=== PATIENT | female | born 1995 | race Caucasian/White ===

== ENCOUNTER 2024-05-06 16:17 | Emergency (ER) | payer OTHER, SELFPAY ==
--- NOTE | 2024-05-06 16:20 | ED_ITS ---
HPI - URI/Sore Throat General Chief Complaint: Upper Respiratory Infection Stated Complaint: cold symptoms Time Seen by Provider: 05/06/24 16:36 Source: patient and RN notes reviewed Mode of arrival: ambulatory Limitations: no limitations History of Present Illness HPI Narrative: 29-year-old female presents with concern for 5 day history of sore throat, runny, stuffy nose, headache postnasal drainage. She reports productive cough. She denies fever, body aches, chills, sweats. MD elicited complaint: cough and sore throat Related Data Allergies Allergy/AdvReac Type Severity Reaction Status Date / Time No Known Allergies Allergy Verified 05/06/24 16:27 Review of Systems Review of Systems: CONSTITUTIONAL: Denies malaise, chills, sweats, or fever. EYES: Denies visual changes, redness, or discharge. ENT: Reports rhinorrhea, congestion, and sore throat. CARDIOVASCULAR: Denies chest pain, palpitations, or edema. RESPIRATORY: Reports cough. Denies dyspnea. GASTROINTESTINAL: Denies abdominal pain, nausea, vomiting, diarrhea SKIN: Denies rash or itching. MUSCULOSKELETAL: Denies myalgia. NEUROLOGIC: Denies headache. All systems reviewed & are unremarkable except as noted in HPI and below PMFSH Comments At time of signature, agree with nursing past medical, surgical, social and family history. There is no relevant family history pertinent to the presenting complaint Exam Narrative: GENERAL: Well-appearing, well-nourished, and in no acute distress. HEAD: Normocephalic EYES: PERRLA, conjunctivae clear ENT: Nares clear, turbinates edematous and erythematous, clear discharge. Mucous membranes moist. TM pearly candelario with dull light reflex bilaterally; no tragal tenderness. Oropharynx not erythematous without lesions. Tonsils not enlarged and without exudate, no drooling, no hoarseness, no trismus, uvula midline. NECK: Supple. No lymphadenopathy CHEST: Clear to auscultation, breath sounds equal. No wheezing, rhonchi, rales, or stridor. No respiratory distress, speaks in full sentences. HEART: Regular rate and rhythm. No murmur heard. SKIN: Warm, dry, no rash. NEURO: Alert and oriented x3. PSYCH: Normal mood and affect Course Course Emergency Course: Patient is aware of diagnosis, understands and agrees to treatment plan. Anticipatory guidance given. Patient agrees to follow-up as directed and is aware of reasons to seek care at the emergency department. Portions of this record may have been created with voice recognition software Level of Care: Express Care Visit Vital Signs Vital signs: Reviewed. MDM - URI/Sore Throat MDM Narrative Medical decision making narrative: Differential diagnosis considered: Armendariz virus, strep pharyngitis, allergic rhinitis, upper respiratory tract infection, sinusitis, rhinosinusitis, nasop haryngitis. viral pharyngitis, otitis media, otitis externa, pneumonia, bronchitis, viral cough syndrome, viral syndrome, and influenza. Exam findings show no acute concerns or changes; patient is non-toxic appearing and is in no distress. Patient is appropriate for outpatient treatment and follow-up. Lab Data Attestation: I reviewed the patient's lab results. Critical Care Time Critical Care Time Critical Care Time: No Discharge Plan Discharge Clinical Impression: Bronchitis Patient Disposition: Home, Self-Care Condition: Stable Instructions: Acute Bronchitis (ED) Additional Instructions: Viral illness may last between 7-21 days; antibiotics do not cure viral illness and are NOT recommended at this time. Recommend antihistamine such as Benadryl at night time and Zyrtec or Jennifer during the day Cough syrup may cause drowsiness; avoid driving or take it at night time. Also, recommend symptomatic treatment includes: rest, fluids, and increase humidity of the air at home. Recommend Acetaminophen as directed on the bottle to reduce fever, pain, headache. Avoid smoking/second-hand smoke. Please schedule a follow-up visit with your personal physician for further evaluation and treatment within 3-5days. Including recheck and discussion of your blood pressure. If your symptoms persist, change or worsen significantly before you can contact your personal physician then please, without delay, go to the emergency department for further evaluation. Prescriptions: New pseudoephedrine HCl [12 Hour Decongestant] 120 mg tablet extended release 120 mg PO Q12H PRN (Reason: nasal congestion) Qty: 20 0RF promethazine-DM 6.25-15 mg/5 mL syrup 5 ml PO Q4-6H PRN (Reason: cough) Qty: 120 0RF Follow-up/Referrals: UNKNOWN,DOCTOR [Non-Staff] - Time of Disposition: 16:40
[2024-05-06 16:24] VITALS: BP 145/98; PULSE 99; RESP 18; TEMP 36.5; O2SAT 99
== END 2024-05-06 16:46 | disposition home or self-care (01) ==
PROVIDERS: Emergency Provider Nurse Practitioner
DX: J40 Bronchitis, not specified as acute or chronic (principal)
CPT/HCPCS: 99203; G0463

== ENCOUNTER 2025-04-14 15:57 | Emergency (ER) | payer OTHER, SELFPAY ==
--- OUTSIDE RECORDS SUMMARY | 2013-06-07 08:30 | XMS_ITS | Continuity of Care Document ---
Author Organization [facility] Address [address] [place] [address] Phone Care Team Providers Care Fruit Harvest Machine Operator Name Role Phone Chauncye Garcia MD Unavailable Unavailable Allergies, Adverse Reactions, Alerts Substance Reaction Status Criticality No Known allergies Procedures Procedure Date Eye Exam, New Patient No Charge Refraction Advance Directives Directive Yes / No Effective Date File Name Resuscitation Not Answered N/A N/A Life Support Not Answered N/A N/A Intubation Not Answered N/A N/A Antibiotics Not Answered N/A N/A IV Fluid Support Not Answered N/A N/A Tube Feed Not Answered N/A N/A Other Directive N/A N/A WARNING:The information contained in this section is historical and is provided for information only and does not constitute a legal document or any assurance that the information is still accurate. Please verify the information with the green of the legal document before using it for clinical purposes. Encounters Encounter Description Practice Location Reason(s) For Visit Diagnoses Date Provider Providers Copied on Encounter [facility], [address], [place], [place], [address], [place] tel:[phone] [facility] Professional [facility] [place] 4 Jose Grossman. [address] [facility], [address], [place], [place], [address], [place]. tel:[phone] Referring Provider: Nicolás Bray OD, [facility] [address] [place], [address]. tel:[phone] Family History Family Member Type Diagnosis Age At Onset Grandfather (p) Problem (finding) Diabetes mellitus Payers Payer name Insurance type Covered green party ID Radha andre(s) [facility] Commercial CI [id number] Social History Type Description Quantity Date Captured Comments Alcohol Use Details No Caffeine Use Details 1 cup per day Tobacco Use Status No Information Smoking Status Never smoker Non-Smoking Tobacco Use Details : No Details Available : No Details Available Sex Female Chief Complaint And Reason For Visit No Information Reason For Referral Reason For Referral No Information History Of Present Illness Encounter Date Complaint History Of Prese nt Illness No Information Functional Status Date Functional Assessmen t No Information Instructions Date Instruction Additional Infor seda - RTC as needed Related to See i mpression: general plan General plan -[facility]IPH OPAC[facility] [place] - 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 Pt advised to change contact lens to a more wettable brand. [facility] contacted by [facility]. RTC as needed. Educational materials provided:about today's exam. Related to See impression: general plan Assessments Type Assessment Date No Information Patient Care Teams Name Effective Dates (start - stop) Status Members No Information
--- OUTSIDE RECORDS SUMMARY | 2013-06-07 08:30 | XMS_ITS | Continuity of Care Document ---
Author Organization [facility] Address [address] [place] [address] Phone Care Team Providers Care Corner Bead Operator Name Role Phone Chauncey Garcia MD Unavailable Unavailable Allergies, Adverse Reactions, [...] Diagnoses Date Provider Providers Copied on Encounter [facility], [address], [place], [place], [address], [place] tel:[phone] [facility] Professional [facility] [place] 4 Jose Grossman. [address] [facility], [address], [place], [place], [address], [place]. tel:[phone] Referring Provider: Nicolás Bray OD, [facility] [address] [place], [address]. tel:[phone] Family History Family Member Type Diagnosis Age At Onset Grandfather (p) Problem (finding) Diabetes mellitus Payers Payer name Insurance type Covered green party ID Radha andre(s) [facility] Commercial CI [id number] Social History Type Description Quantity Date Captured [...]
--- OUTSIDE RECORDS SUMMARY | 2013-06-07 08:30 | XMS_ITS | Continuity of Care Document ---
Author Organization [facility] Address [address] [place] [address] Phone Care Team Providers Care Apprentice Cosmetologist Name Role Phone Chauncey Garcia MD Unavailable [...] Diagnoses Date Provider Providers Copied on Encounter [facility], [address], [place], [place], [address], [place] tel:[phone] [facility] Professional [facility] [place] 4 Jose [address]man. [address] [facility], [address], [place], [place], [address], [place]. tel:[phone] Referring Provider: Nicolás Bray OD, [facility] [address] [place], [address]. tel:[phone] Family History Family Member Type Diagnosis Age At Onset Grandfather (p) Problem (finding) Diabetes mellitus Payers Payer name Insurance type Covered green party ID Radha andre(s) [place] Commercial CI [id number] Social History Type Description Quantity Date Captured [...]
--- OUTSIDE RECORDS SUMMARY | 2013-06-07 08:30 | XMS_ITS | Continuity of Care Document ---
Author Organization [facility] Address [address] [place] [address] Phone Care Team Providers Care Hollow Core Door Frame Assembler Name Role Phone Chauncey Garcia MD Unavailable [...] Diagnoses Date Provider Providers Copied on Encounter [facility], [address], [place], [place], [address], [place] tel:[phone] [facility] Professional [facility] [place] 4 Jose Grossman. [address] [facility], [address], [place], [place], [address], [place]. tel:[phone] Referring Provider: Nicolás Bray OD, [facility] [address] [place], [address]. tel:[phone] Family History Family Member Type Diagnosis Age At Onset Grandfather (p) Problem (finding) Diabetes mellitus Payers Payer name Insurance type Covered green party ID Radha andre(s) [facility] Commercial CI [id number] Social History Type Description Quantity Date Captured [...]
--- OUTSIDE RECORDS SUMMARY | 2013-06-07 08:30 | XMS_ITS | Continuity of Care Document ---
Author Organization [facility] Address [address] [place] [address] Phone Care Team Providers Care Account Development Specialist Name Role Phone Chauncey Garcia MD Unavailable [...] Date Provider Providers Copied on Encounter [facility], [address], [place], [place], [address], [place] tel:[phone] [facility] Professional [facility] [place] 4 Jose Grossman. [address] [facility], [address], [place], [place], [address], [place]. tel:[phone] Referring Provider: Nicolás Bray OD, [facility] [address] [place], [address]. tel:[phone] Family History Family Member Type Diagnosis Age At Onset Grandfather (p) Problem (finding) Diabetes mellitus Payers Payer name Insurance type Covered green party ID Radha andre(s) [facility] Commercial CI [id number] Social History Type Description Quantity Date Captured [...]
--- OUTSIDE RECORDS SUMMARY | 2013-06-07 08:30 | XMS_ITS | Continuity of Care Document ---
Author Organization [facility] Address [address] [place] [address] Phone Care Team Providers Care Grain Receiver Name Role Phone Chauncey Garcia MD Unavailable [...] Diagnoses Date Provider Providers Copied on Encounter [facility], [address], [place], [place], [address], [place] tel:[phone] [facility] Professional [facility] [place] 4 Jose Grossman. [address] [facility], [address], [place], [place], [address], [place]. tel:[phone] Referring Provider: Nicolás Bray OD, [facility] [address] [place], [address]. tel:[phone] Family History Family Member Type Diagnosis Age At Onset Grandfather (p) Problem (finding) Diabetes mellitus Payers Payer name Insurance type Covered republican ID Radha andre(s) [facility] Commercial CI [id number] Social History Type Description Quantity Date Captured [...]
--- OUTSIDE RECORDS SUMMARY | 2013-06-07 08:30 | XMS_ITS | Continuity of Care Document ---
Author Organization [facility] Address [address] [place] [address] Phone Care Team Providers Care Bead Trimmer Name Role Phone Chauncey Garcia MD Unavailable [...] Diagnoses Date Provider Providers Copied on Encounter [facility], [address], [place], [place], [address], [place] tel:[phone] [facility] Professional [facility] [place] 4 Jose Grossman. [address] [facility], [address], [place], [place], [address], [place]. tel:[phone] Referring Provider: Nicolás Bray OD, [facility] [address] [place], [address]. tel:[phone] Family History Family Member Type Diagnosis Age At Onset Grandfather (p) Problem (finding) Diabetes mellitus Payers Payer name Insurance type Covered libertarian ID Radha andre(s) [facility] Commercial CI [id number] Social History Type Description Quantity Date Captured [...]
--- OUTSIDE RECORDS SUMMARY | 2013-06-07 08:30 | XMS_ITS | Continuity of Care Document ---
Author Organization [facility] Address [address] [place] [address] Phone Care Team Providers Care Antisqueak Filler Name Role Phone Chauncey Garcia MD Unavailable [...] Diagnoses Date Provider Providers Copied on Encounter [facility], [address], [place], [place], [address], [place] tel:[phone] [facility] Professional [facility] [place] 4 [address]. [address] [facility], [address], [place], [place], [address], [place]. tel:[phone] Referring Provider: Nicolás Bray OD, [facility] [address] [place], [address]. tel:[phone] Family History Family Member Type Diagnosis Age At Onset Grandfather (p) Problem (finding) Diabetes mellitus Payers Payer name Insurance type Covered libertarian ID Radha andre(s) [facility] Commercial CI [id number] Social History Type Description Quantity Date Captured [...]
--- OUTSIDE RECORDS SUMMARY | 2013-06-07 08:30 | XMS_ITS | Continuity of Care Document ---
Author Organization [facility] Address [address] [place] [address] Phone Care Team Providers Care Sock And Stocking Ironer Name Role Phone Chauncey Garcia MD Unavailable [...] Diagnoses Date Provider Providers Copied on Encounter [facility], [address], [place], [place], [address], [place] tel:[phone] [facility] Professional [facility] [place] 4 [address]. [address] [facility], [address], [place], [place], [address], [place]. tel:[phone] Referring Provider: Nicolás Bray OD, [facility] [address] [place] [place], [address]. tel:[phone] Family History Family Member Type Diagnosis Age At Onset Grandfather (p) Problem (finding) Diabetes mellitus Payers Payer name Insurance type Covered green party ID Radha andre(s) [facility] Commercial CI [id number] Social History Type Description Quantity Date Captured [...]
--- OUTSIDE RECORDS SUMMARY | 2013-06-07 08:30 | XMS_ITS | Continuity of Care Document ---
Author Organization [facility] Address [address] [place] [address] Phone Care Team Providers Care Global Cmo Name Role Phone Chauncey Garcia MD Unavailable [...] Diagnoses Date Provider Providers Copied on Encounter [facility], [address], [place], [place], [address], [place] tel:[phone] [facility] Professional [facility] [place] 4 [address]. [address] [facility], [address], [place], [place], [address], [place]. tel:[phone] Referring Provider: Nicolás Bray OD, [facility] [address] [place], [address]. tel:[phone] Family History Family Member Type Diagnosis Age At Onset Grandfather (p) Problem (finding) Diabetes mellitus Payers Payer name Insurance type Covered alliance party ID Radha andre(s) [facility] Commercial CI [id number] Social History Type Description Quantity Date Captured [...]
--- OUTSIDE RECORDS SUMMARY | 2013-06-07 08:30 | XMS_ITS | Continuity of Care Document ---
Author Organization [facility] Address [address] [place] [address] Phone Care Team Providers Care Talent Acquisition Specialist Name Role Phone Chauncey Garcia MD [...] Diagnoses Date Provider Providers Copied on Encounter [facility], [address], [place], [place], [address], [place] tel:[phone] [facility] Professional [facility] [place] 4 Jose [address]man. [address] [facility], [address], [place], [place], [address], [place]. tel:[phone] Referring Provider: Nicolás Bray OD, [facility] [address] [place], [address]. tel:[phone] Family History Family Member Type Diagnosis Age At Onset Grandfather (p) Problem (finding) Diabetes mellitus Payers Payer name Insurance type Covered constitution party ID Radha andre(s) [facility] Commercial CI [id number] Social History Type Description Quantity Date Captured [...]
--- OUTSIDE RECORDS SUMMARY | 2013-06-07 08:30 | XMS_ITS | Continuity of Care Document ---
Author Organization [facility] Address [address] [place] [address] Phone Care Team Providers Care Cooky Packer Name Role Phone Chauncey Garcia MD Unavailable [...] Diagnoses Date Provider Providers Copied on Encounter [facility], [address], [place], [place], [address], [place] tel:[phone] [facility] Professional [facility]H [facility]ACITY [facility] [place] 4 [address]. [address] [facility], [address], [place], [place], [address], [place]. tel:[phone] Referring Provider: Nicolás Bray OD, [facility] [address] [place], [address]. tel:[phone] Family History Family Member Type Diagnosis Age At Onset Grandfather (p) Problem (finding) Diabetes mellitus Payers Payer name Insurance type Covered constitution party ID Radha andre(s) [facility] Commercial CI [id number] Social History Type Description Quantity Date Captured [...]
--- OUTSIDE RECORDS SUMMARY | 2013-06-07 08:30 | XMS_ITS | Continuity of Care Document ---
Author Organization [facility] Address [address] [place] [address] Phone Care Team Providers Care Fish Farm Laborer Name Role Phone Chauncey Garcia MD Unavailable [...] Providers Copied on Encounter [facility], [address], [place], [place], [address], [place] tel:[phone] [facility] Professional [facility] [place] 4 [address]. [address] [facility], [address], [place], [place], [address], [place]. tel:[phone] Referring Provider: Nicolás Bray OD, [facility] [address] [place] [place], [address]. tel:[phone] Family History Family Member Type Diagnosis Age At Onset Grandfather (p) Problem (finding) Diabetes mellitus Payers Payer name Insurance type Covered alliance party ID Radha andre(s) [facility] Commercial CI [id number] Social History Type Description Quantity Date Captured [...]
--- OUTSIDE RECORDS SUMMARY | 2013-06-07 08:30 | XMS_ITS | Continuity of Care Document ---
Author Organization [facility] Address [address] [place] [address] Phone Care Team Providers Care Gamma Ray Operator Name Role Phone Chauncey Garcia MD [...] Diagnoses Date Provider Providers Copied on Encounter [facility], [address], [place], [place], [address], [place] tel:[phone] [facility] Professional [facility] [place] 4 [address]. [address] [facility], [address], [place], [place], [address], [place]. tel:[phone] Referring Provider: Nicolás Bray OD, [facility] [address] [place], [address]. tel:[phone] Family History Family Member Type Diagnosis Age At Onset Grandfather (p) Problem (finding) Diabetes mellitus Payers Payer name Insurance type Covered republican ID Radha andre(s) [facility] Commercial CI [id number] Social History Type Description Quantity Date Captured [...]
--- OUTSIDE RECORDS SUMMARY | 2013-06-07 08:30 | XMS_ITS | Continuity of Care Document ---
Author Organization [facility] [place] [address] [place] [address] Phone Care Team Providers Care Contract Processor Name Role Phone Chauncey Garcia MD Unavailable [...] Diagnoses Date Provider Providers Copied on Encounter [facility], [address], [place], [place], [address], [place] tel:[phone] [facility] Professional PERIPH [facility]ACITY [facility] [place] 4 [address]. [address] [facility], [address], [place], [place], [address], [place]. tel:[phone] Referring Provider: Nicolás Bray OD, [facility] [address] [place], [address]. tel:[phone] Family History Family Member Type Diagnosis Age At Onset Grandfather (p) Problem (finding) Diabetes mellitus Payers Payer name Insurance type Covered libertarian ID Radha andre(s) [facility] Commercial CI [id number] Social History Type Description Quantity Date Captured [...]
--- OUTSIDE RECORDS SUMMARY | 2013-06-07 08:30 | XMS_ITS | Continuity of Care Document ---
Author Organization [facility] Address [address] [place] [address] Phone Care Team Providers Care Dress Finisher Name Role Phone Chauncey Garcia MD Unavailable [...] Diagnoses Date Provider Providers Copied on Encounter [facility], [address], [place], [place], [address], [place] tel:[phone] [facility] Professional [facility]H [facility] [place] 4 [address]. [address] [facility], [address], [place], [place], [address], [place]. tel:[phone] Referring Provider: Nicolás Bray OD, [facility] [address] [place] [place], [address]. tel:[phone] Family History Family Member Type Diagnosis Age At Onset Grandfather (p) Problem (finding) Diabetes mellitus Payers Payer name Insurance type Covered libertarian ID Radha andre(s) [facility] Commercial CI [id number] Social History Type Description Quantity Date Captured [...]
--- OUTSIDE RECORDS SUMMARY | 2013-06-07 08:30 | XMS_ITS | Continuity of Care Document ---
Author Organization [facility] Address [address] [place] [address] Phone Care Team Providers Care Audio Video Mechanic Name Role Phone Chauncey Garcia MD Unavailable [...] Date Provider Providers Copied on Encounter [facility], [address], [place], [place], [address], [place] tel:[phone] [facility] Professional [facility]H [facility] [place] 4 [address]. [address] [facility], [address], [place], [place], [address], [place]. tel:[phone] Referring Provider: Nicolás Bray OD, [facility] [address] [place], [address]. tel:[phone] Family History Family Member Type Diagnosis Age At Onset Grandfather (p) Problem (finding) Diabetes mellitus Payers Payer name Insurance type Covered green party ID Radha andre(s) [facility] Commercial CI [id number] Social History Type Description Quantity Date Captured [...]
--- OUTSIDE RECORDS SUMMARY | 2013-06-07 08:30 | XMS_ITS | Continuity of Care Document ---
Author Organization [facility] [place] [facility] Address [address] [place] [address] Phone Care Team Providers Care Infectious Disease Technician Name Role Phone Chauncey Garcia MD Unavailable [...] Diagnoses Date Provider Providers Copied on Encounter [facility], [address], [place], [place], [address], [place] tel:[phone] [facility] Professional [facility]H [place] [place] 4 [address]. [address] [facility], [address], [place], [place], [address], [place]. tel:[phone] Referring Provider: Nicolás Bray OD, [facility] [address] [place], [address]. tel:[phone] Family History Family Member Type Diagnosis Age At Onset Grandfather (p) Problem (finding) Diabetes mellitus Payers Payer name Insurance type Covered alliance party ID Radha andre(s) [facility] Commercial CI [id number] Social History Type Description Quantity Date Captured [...]
[2025-04-14 16:04] VITALS: BP 133/86; PULSE 90; RESP 18; TEMP 37.2; O2SAT 99
--- NOTE | 2025-04-14 16:12 | ED.URI ---
HPI - URI/Sore Throat General Chief Complaint: Upper Respiratory Infection Stated Complaint: Nasal Congestion/Cough Time Seen by Provider: 04/14/25 16:12 Source: patient, RN notes reviewed and old records reviewed Mode of arrival: ambulatory Limitations: no limitations History of Present Illness HPI Narrative: 30 year old female who presents to [facility] care with complaints of nasal congestion and cough for the past 6 days. 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 She has been taking DayQuil,Nyquil and Sudafed for her symptoms. Patient reports no known fevers chills or sweats denies any pain to her chest and no sore throat pain or body aches.. MD elicited complaint: cough, rhinorrhea, nasal congestion and sinus pain Onset (ago): day(s) (6) Severity: moderate Description of mucous: clear and yellow (tinged at times) Able to tolerate fluids by mouth: Yes Treatments prior to arrival: other (DayQuil, NyQuil and Sudafed) Related Data Allergies Allergy/AdvReac Type Severity Reaction Status Date / Time No Known Allergies Allergy Verified 04/14/25 16:05 Review of Systems Review of Systems: CONSTITUTIONAL: Reports malaise,no chills, sweats, or fever. EYES: Denies visual changes, redness, or discharge. ENT: Reports rhinorrhea, congestion, sinus pain,no otalgia and no sore throat. CARDIOVASCULAR: Denies chest pain, palpitations, or edema. RESPIRATORY: Reports cough.? Denies dyspnea. GASTROINTESTINAL: Denies abdominal pain, nausea, vomiting, diarrhea SKIN: Denies rash or itching. MUSCULOSKELETAL: Denies myalgia. NEUROLOGIC: Denies headache. All systems reviewed & are unremarkable except as noted in HPI and below PMFSH Social History Social History (Updated 04/16/25 @ 08:38 by Lorraine Mueller, ЕЛЕНА) Smoking status: Never smoker Alcohol intake: current Alcohol use details: rare social Substance use type: does not use Living arrangements: with family Occupation/Education: occupation Additional occupation/education comments: high school sports coach Gender identity (if verbalized by the patient): Female Comments At time of signature, agree with nursing past medical, surgical, social and family history. There is no relevant family history pertinent to the presenting complaint Exam Narrative: GENERAL: Well-appearing, well-nourished, and in no acute distress. HEAD: Normocephalic EYES: PERRLA, conjunctivae clear ENT: Nares clear, turbinates edematous and erythematous, clear to yellow tinged discharge, sinus pressure. Mucous membranes moist. TM pearly candelario with dull light reflex bilaterally; no tragal tenderness. Oropharynx erythematous without lesions. Tonsils not enlarged and without exudate, no drooling, no hoarseness, no trismus, uvula midline.post nasal drainage NECK: Supple. No lymphadenopathy CHEST: Clear to auscultation, breath sounds equal. No wheezing, rhonchi, rales, or stridor. No respiratory distress, speaks in full sentences.productive cough at times mainly dry SAO2 99% on room air HEART: Regular rate and rhythm. No murmur heard. SKIN: Warm, dry, no rash. NEURO: Alert and oriented x3. PSYCH: Normal mood and affect Course Course Emergency Course: Patient is aware of diagnosis, understands and agrees to treatment plan.? Anticipatory guidance given.? Patient agrees to follow-up as directed and is aware of reasons to seek care at the emergency department. Portions of this record may have been created with voice recognition software Level of Care: Express Care Visit Vital Signs Vital signs: Vital Signs Temperature 37.2 C 04/14/25 16:04 Pulse Rate 90 04/14/25 16:04 Respiratory Rate 18 04/14/25 16:04 Blood Pressure 133/86 04/14/25 16:04 Pulse Oximetry 99 04/14/25 16:04 Oxygen Delivery Room Air 04/14/25 16:04 Temperature 37.2 C 04/14/25 16:04 Pulse Rate 90 04/14/25 16:04 Respiratory Rate 18 04/14/25 16:04 Blood Pressure 133/86 04/14/25 16:04 Pulse Oximetry 99 04/14/25 16:04 Oxygen Delivery Room Air 04/14/25 16:04 Reviewed MDM - URI/Sore Throat MDM Narrative Medical decision making narrative: Differential diagnosis considered: Armendariz virus, strep pharyngitis, allergic rhinitis, upper respiratory tract infection, sinusitis, rhinosinusitis, nasopharyngitis. viral pharyngitis, otitis media, otitis externa, pneumonia, bronchitis, viral cough syndrome, viral syndrome, and influenza.? Exam findings show no acute concerns or changes; patient is non-toxic appearing and is in no distress.? Patient is appropriate for outpatient treatment and follow-up. Differential Diagnosis Differential diagnosis: Likely upper respiratory infection, sinusitis, viral infection and other (acute cough) Medical Records Attestation: I reviewed the patient's medical records. Lab Data Attestation: I reviewed the patient's lab results. Critical Care Time Critical Care Time Critical Care Time: No Discharge Plan Discharge Clinical Impression: Acute cough URI (upper respiratory infection) Qualifiers: URI type: unspecified URI Qualified Code(s): J06.9 - Acute upper respiratory infection, unspecified Patient Disposition: Home Condition: Stable Instructions: Upper Respiratory Infection (ED), Acute Cough (ED) Additional Instructions: Increase fluids especially juices and water [id number] cough and cold medicine of your choice for your symptoms Prescription cough medicine as directed--caution drowsiness and no driving or alcohol Zyrtec Claritin or Jennifer daily Mucinex daily for package instruction Steroids as directed--take with food heat to the face 20-30 minutes 4-6 times a day for pain Salt water gargles, throat lozenges or throat sprays as desired If your symptoms persist, change or worsen significantly before you can contact your personal physician then please, without delay, go to the emergency department for further evaluation. Follow-up with PCP in 7-10 days or sooner if needed Follow up with PCP soon in regards to your blood pressure which is elevated above threshold for referral. Blood pressure above 120/80 may indicate pre-hypertension. 133/86 Monitor for any fevers Patient Language: Lithuanian Prescriptions: New prednisone 20 mg tablet 20 mg PO BID Qty: 10 0RF codeine-guaifenesin 10-100 mg/5 mL liquid 10 ml PO Q6H PRN (Reason: cough) Qty: 200 0RF Rx Instructions: do not drive while taking this medication Follow-up/Referrals: PHYSICIAN,DISASTER RECOVERY COORDINATOR [Primary Care Provider, Internal Medicine] Time of Disposition: 16:24 Quality Marek Coma Scale Eyes: Open Verbal: Oriented and Alert Motor: Follows Commands Marek Coma Total Score: 15
== END 2025-04-14 16:27 | disposition home or self-care (01) ==
PROVIDERS: Emergency Provider Registered Nurse
DX: R05.1 Acute cough (principal); J06.9 Acute upper respiratory infection, unspecified
CPT/HCPCS: 99213; G0463